=== PATIENT | female | born 1960 | race Caucasian/White ===

== ENCOUNTER 2017-05-12 01:24 | Emergency (ER) | payer BC, OTHER ==
[~2017-05-12] VITALS: Ht 160 cm; Wt 61.2 kg
[2017-05-12 01:25] VITALS: BP_SYST 142
[2017-05-12 05:39] VITALS: BP_SYST 138
== END 2017-05-12 05:38 | disposition home or self-care (01) ==
LOC: SED 01:24
DX: J11.1 Influenza due to unidentified influenza virus with other respiratory manifestations (principal); I10 Essential (primary) hypertension; Z88.5 Allergy status to narcotic agent
CPT/HCPCS: 36415; 71045; 86710; 99285